=== PATIENT | female | born 1945 | race African-American/Black ===

== ENCOUNTER 2021-11-08 05:42 | Emergency (ER) | payer SELFPAY ==
[~2021-11-08] VITALS: Ht 167.6 cm; Wt 60.0 kg
[2021-11-08 06:13] LABS: BASOPHILS % 0.6 % (0.0-2.0); EOSINOPHILS % 0.8 % (0.0-5.0); HEMATOCRIT. 39.2 % (36.0-48.0); HEMOGLOBIN. 11.9 g/dL (12.0-16.0); LYMPHOCYTES % 25.7 % (20.0-50.0); MEAN CORPUSCULAR HEMOGLOBIN 26.2 pg (28.0-32.0); MEAN CORPUSCULAR VOLUME 86.3 fL (81.0-99.0); MEAN PLATELET VOLUME 9.1 fl (7.4-10.4); MONOCYTES % 6.5 % (2.0-8.0); NEUTROPHILS % 66.4 % (40.0-76.0); PLATELET 170 x1000/uL (130-400); RED BLOOD CELL COUNT 4.54 mill/uL (4.2-5.4); RED CELL DISTRIBUTION WIDTH 17.6 % (11.6-14.6)
[2021-11-08 06:23] LABS: CHLORIDE 111 mEq/L (98-107)
[2021-11-08] MEDS ORDERED: ASPIRIN 81MG TABLET PO ONE (06:30)
[2021-11-08] MEDS ORDERED: NITROGLYCERIN OINT 1GM/INCH UDPKT TD ONE (06:30)
[2021-11-08] MEDS ORDERED: NITROGLYCERIN 50MG PREMIX 250 ML IV ONE ×2 (06:30)
[2021-11-08] MEDS ORDERED: ALBUTEROL (0.083%) 2.5MG/3ML NEB HHN ONE (07:30)
[2021-11-08] MEDS ORDERED: METHYLPREDNISOLONE SOD SUCC 125 MG/2 ML VIAL IV ONE (07:30)
[2021-11-08] MEDS ORDERED: SUCCINYLCHOLINE CHLORIDE 200MG/10ML IV ONE (08:58)
[2021-11-08] MEDS ORDERED: ETOMIDATE 2MG/ML 10ML VIAL IV ONE (08:58)
[2021-11-08] MEDS ORDERED: SODIUM CHLORIDE 0.9% 10ML VIAL ONE (08:58)
[2021-11-08] MEDS ORDERED: FUROSEMIDE 40MG/4ML VIAL IVP ONE (09:00)
[2021-11-08] MEDS ORDERED: IPRATROPIUM/ALBUTEROL 0.5-3(2.5)MG/3ML NEB HHN PRN (10:45)
[2021-11-08 11:00] VITALS: BP 52/14
[2021-11-08] MEDS ORDERED: METHYLPREDNISOLONE SOD SUCC 40 MG/ML VIAL IV SCH (11:00)
[2021-11-08] MEDS ORDERED: NOREPINEPHRINE 8MG/250ML PMX 250 ML IV PRN (11:00)
[2021-11-08] MEDS ORDERED: EPINEPHRINE 0.1MG/ML (1:10,000) 10ML SYR ONE (11:20)
[2021-11-08] MEDS ORDERED: IPRATROPIUM/ALBUTEROL 0.5-3(2.5)MG/3ML NEB HHN SCH (12:00)
== END 2021-11-08 15:40 ==
LOC: ER 05:42 → EDBEDREQSVC 11:06 → EDBEDREQ 11:06 → EDBEDREQTM 11:06 → CANBEDREQ 14:07 → ER 15:40
DX: J81.0 Acute pulmonary edema (principal); I46.9 Cardiac arrest, cause unspecified; J44.9 Chronic obstructive pulmonary disease, unspecified; I10 Essential (primary) hypertension; Z20.822 Contact with and (suspected) exposure to COVID-19; Z87.891 Personal history of nicotine dependence
CPT/HCPCS: 31500; 36415; 71045; 80053; 82962; 83880; 84484; 85025; 87426; 92950; 93005; 94002; 94660; 96374; 99285; J0330; J3490; Z7610